=== PATIENT | male | born 1980 | race Caucasian/White ===

== ENCOUNTER 2020-06-24 12:25 | Emergency (ER) | payer OTHER, SELFPAY ==
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
[2020-06-24 12:38] VITALS: BP 144/87; BP 168/110; PULSE 81; PULSE 86; RESP 12; TEMP 36.6; O2SAT 97; O2SAT 99; BMI 25.6
[2020-06-24 15:18] VITALS: BP 147/88; PULSE 89; RESP 16; TEMP 37.1; O2SAT 99
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
[2020-06-24] MEDS: Ketorolac Tromethamine 60 MG/2 ML VIAL IM (16:35)
== END 2020-06-24 16:51 | disposition home or self-care (01) ==
PROVIDERS: Emergency Provider Internal Medicine; PCP Internal Medicine
DX: S39.012A Strain of muscle, fascia and tendon of lower back, initial encounter (principal); M79.604 Pain in right leg; V43.02XA Car driver injured in collision with other type car in nontraffic accident, initial encounter; Y93.9 Activity, unspecified; Y92.410 Unspecified street and highway as the place of occurrence of the external cause
CPT/HCPCS: 72100; 96372; 99284; J1885

== ENCOUNTER 2023-09-27 11:08 | Outpatient (REF) | payer MEDICAID, SELFPAY ==
[2023-09-27 14:13] LABS: Cholesterol 161 mg/dL (<200); HDL Cholesterol 44 mg/dL (>40); LDL Cholesterol Calculated 104 mg/dL (<100); Triglycerides 65 mg/dL (<150)
[2023-09-27 14:34] LABS: Anion Gap 12 (12-20); Blood Urea Nitrogen 11 mg/dL (9-16); Calcium 9.7 mg/dL (8.4-10.2); Carbon Dioxide 26 mmol/L (22-29); Chloride 108 mmol/L (96-108); Estimated Glomerular Filt Rate > 60; Glucose Random 79 mg/dL (60-115); Potassium 3.6 mmol/L (3.3-5.1); Sodium 142 mmol/L (135-145)
[2023-09-27 15:04] LABS: Reflex LDLD? No
[2023-09-27 15:05] LABS: TSH reflex Free T4 1.07 uIU/mL (0.32-4.0); Vitamin D 25-OH Total 29.8 ng/mL (>30)
[2023-09-28 07:12] LABS: Syphilis Screen Nonreactive (Nonreactive)
[2023-09-28 07:24] LABS: HBS Num1 60.05 mIU/mL (0-7.99); HBc Num1 0.12 S/CO (0.00-0.79); HIV AB/AG Nonreactive (Nonreactive); HIV Num 1 0.06 S/CO (0.00-0.99); Hepatitis A Antibody IgM 0.21 Index (0-0.79); Hepatitis B Core Antibody Nonreactive (Nonreactive); Hepatitis B Surface Antigen Negative (Negative); ~HepC Num1 0.15 S/CO (0.00-0.79); ~Hepatitis A Antibody IgM Nonreactive (Nonreactive); ~Hepatitis B Surface Antibody REACTIVE (Nonreactive); ~Hepatitis C Antibody Nonreactive (Nonreactive)
== END 2023-09-27 11:09 | disposition home or self-care (01) ==
LOC: HO.HHCL 11:08
PROVIDERS: Visit Provider Internal Medicine
DX: Z00.00 Encounter for general adult medical examination without abnormal findings (principal); I10 Essential (primary) hypertension; G47.33 Obstructive sleep apnea (adult) (pediatric)
CPT/HCPCS: 36415; 80048; 80061; 82306; 84443; 86704; 86706; 86709; 86780; 86803; 87340; 87389

== ENCOUNTER → 2024-01-25 14:31 | Outpatient (REF) | payer MEDICAID, SELFPAY ==
--- NOTE | 2024-01-25 14:38 | CA_ITS ---
Transthoracic Echocardiogram Patient (Last, First, Middle): Mariusz Sutton A Gender: Male Date of : 1980 Age: 43 Procedure Date: 01/25/2024 Procedure Type: Transthoracic Echocardiogram Location: OP Height: 157.48 cm Weight: 79.83 kg BSA: 1.81 m2 Heart Rate: bpm BP: 97 / 76 mmHg Ventilating Equipment Installer: MONTEZ Referring MD: Adrián Jay MD Symptoms: R06.09 DAVIS Study Quality: Adequate ECG Rhythm: Sinus Conclusions: - The left ventricular systolic function is normal. The calculated ejection fraction is 67% by biplane method. - Moderate focal hypertrophy of the basal septum. - No obvious valvular pathology seen on this study. Findings Left Ventricle Normal left ventricular cavity size. The left ventricular systolic function is normal. The calculated ejection fraction is 67% by biplane method. There is no evidence of regional wall motion abnormalities. Diastolic function is normal for age. Moderate focal hypertrophy of the basal septum. LV peak GLS 20.1%. Right Ventricle Normal right ventricular cavity size and systolic function. Atria Both atria are normal in size. Aortic Valve There is a normal trileaflet aortic valve. There is no aortic valve stenosis. There is no aortic valve regurgitation. Mitral Valve The mitral valve appears normal. There is no mitral valve regurgitation. There is no mitral valve stenosis. Pulmonic Valve The pulmonic valve is likely normal. Tricuspid Valve There is mild tricuspid valve regurgitation. There is no evidence of pulmonary hypertension. Great Vessels The asc aorta and aortic arch are normal in size. Venous The inferior vena cava is normal in size and collapses greater than 50% with inspiration. Pericardium/Pleural There is no evidence of pericardial effusion. Prior Study Comparison No prior study available for comparison. Recommendations, Care & Conclusions No obvious valvular pathology seen on this study. Measurements 2D Linear Measurements IVSd: 1.40 0.6-0.9/0.6-1.0 cm LVIDd: 4.41 3.9-5.3/4.2-5.9 cm LVIDd Index: 2.44 2.4-3.2/2.2-3.1 cm/m2 LVIDs: 2.80 2.0-3.6 cm LVPWd: 0.93 0.7-1.1 cm LA Diam: 2.80 2.7-3.8/3.0-4.0 cm LAIDs Index: 1.55 1.5-2.3 cm/m2 LV Mass: 229.09 67-162/88-224 g LV Mass Index: 126.57 43-95/49-115 g/m2 LVOT Diam: 2.10 3.0+(-)1.3 cm 2D Systolic Function EF 4C: 66.70 >55% EF 2C: 65.90 >55% EF BiP: 66.70 >55% Mitral Valve MV Pk E: 1.04 MV PK A: 0.72 MV Decel Time: 194.00 E/A: 1.40 E'Lateral: 10.40 E'Medial: 8.49 E/E' Med: 12.20 E/E' Lat: 10.00 PHT: 57.00 MVA PHT: 3.86 Decel [place]: 5.37 Aortic Valve AoV Pk Jose D: 1.52 AoV Mn Jose D: 0.95 AoV VTI: 0.29 AoV Pk Grad: 9.00 Aov Mn Grad: 4.00 SHEN Cont.VTI: 3.34 LVOT LVOT Pk Jose D: 1.29 LVOT Mn Jose D: 0.78 LVOT VTI: 0.28 LVOT Pk Grad: 7.00 LVOT Mn Grad: 3.00 LVOT Diam: 2.10 LVOT Area: 3.46 Diastolic Function MV Pk E: 1.04 MV Pk A: 0.72 E/A: 1.40 E'Medial: 8.49 E/E' Med: 12.20 E' Laterial: 10.40 E/E' Lat: 10.00 Right Ventricle TAPSE (mm): 22.40 TVS' Jose D: 11.40 Tricuspid Valve TR Pk Jose D: 2.20 TR Pk Grad: 19.00 RA Press: 3.00 RVSP: 22.00 Great Vessels Aorta Sinus of Valsalva: 2.97 2.0-3.[address] [place]: 2.61 1.7-3.4 cm Ao Asc: 2.90 2.1-3.4 cm Ao Arch: 2.60 Updated in Other Vendor System with Status of Final Saud Gonzalez MD electronically signed on 01/26/2024 8:05:31 AM with status of Final
== END ==
LOC: HO.CARD 14:31
PROVIDERS: PCP Internal Medicine; Visit Provider Internal Medicine Cardiovascular Disease
DX: R06.09 Other forms of dyspnea (principal)
CPT/HCPCS: 93306; 93356

== ENCOUNTER → 2024-01-25 14:38 | Outpatient (BNV) | payer MEDICAID, SELFPAY | PROVIDERS: PCP Internal Medicine; Visit Provider Internal Medicine | DX: I36.1 Nonrheumatic tricuspid (valve) insufficiency (principal); I42.2 Other hypertrophic cardiomyopathy | CPT/HCPCS: 93306; 93356 ==

== ENCOUNTER 2024-06-16 12:29 | Outpatient (REF) | payer MEDICAID, SELFPAY ==
[2024-06-16 14:18] LABS: Anion Gap 13 (12-20); Blood Urea Nitrogen 12 mg/dL (9-16); Calcium 10.2 mg/dL (8.4-10.2); Carbon Dioxide 23 mmol/L (22-29); Chloride 108 mmol/L (96-108); Estimated Glomerular Filt Rate > 60; Glucose Random 106 mg/dL (60-115); Potassium 3.8 mmol/L (3.3-5.1); Sodium 140 mmol/L (135-145)
== END 2024-06-16 12:30 | disposition home or self-care (01) ==
LOC: HO.HHCL 12:29
PROVIDERS: Visit Provider Internal Medicine
DX: I10 Essential (primary) hypertension (principal)
CPT/HCPCS: 36415; 80048